=== PATIENT | female | born 1985 | race African-American/Black ===

== ENCOUNTER 2018-07-16 11:06 | Emergency (ER) | payer OTHER ==
[~2018-07-16] VITALS: Ht 162.6 cm; Wt 54.4 kg
[2018-07-16 11:31] LABS: URINE BILIRUBIN NEGATIVE (Negative); URINE BLOOD NEGATIVE (Negative); URINE CLARITY CLEAR; URINE COLOR YELLOW; URINE GLUCOSE-RANDOM* NEGATIVE (Negative); URINE KETONES NEGATIVE (Negative); URINE LEUKOCYTES-REFLEX NEGATIVE (Negative); URINE NITRITE-REFLEX NEGATIVE (Negative); URINE PROTEIN (DIPSTICK) NEGATIVE (Negative); URINE SPECIFIC GRAVITY >= 1.030 (1.005-1.035); URINE UROBILINOGEN 0.2 E.U./dl (0.2-1.0)
[2018-07-16] MEDS ORDERED: FLAGYL500 MG PO (13:11)
[2018-07-16] MEDS ORDERED: DIFLUCAN200 MG PO (13:20)
[2018-07-16] MEDS ORDERED: MOBIC7.5 MG PO (13:20)
[2018-07-16 13:27] VITALS: BP 118/77
[2018-07-19 15:11] LABS: NEISSERIA GONORRHEA-PCR Negative (Negative)
== END 2018-07-16 13:28 | disposition home or self-care (01) ==
LOC: ER 11:06
PROVIDERS: Physician Assistant
DX: T19.2XXA Foreign body in vulva and vagina, initial encounter (principal); R10.9 Unspecified abdominal pain; N76.0 Acute vaginitis; X58.XXXA Exposure to other specified factors, initial encounter; Y93.89 Activity, other specified; Y92.89 Other specified places as the place of occurrence of the external cause; Y99.8 Other external cause status

== ENCOUNTER 2019-10-28 17:17 | Emergency (ER) | payer OTHER ==
[~2019-10-28] VITALS: Ht 162.6 cm; Wt 63.5 kg
[~2019-10-28 17:17] MED LIST: DIFLUCAN200 MG PO; FLAGYL500 MG PO; MOBIC7.5 MG PO
[2019-10-28] MEDS ORDERED: CYCLOBENZAPRINE5 MG PO (18:54)
[2019-10-28] MEDS ORDERED: MOBIC15 MG PO (18:54)
[2019-10-28] MEDS ORDERED: NORCO 5-325 TA1 EAC1 PO (18:54)
[2019-10-28 19:24] VITALS: BP 141/91
== END 2019-10-28 19:22 | disposition home or self-care (01) ==
LOC: ER 17:17
DX: M53.3 Sacrococcygeal disorders, not elsewhere classified (principal); M54.5 Low back pain; Z90.49 Acquired absence of other specified parts of digestive tract; Z79.899 Other long term (current) drug therapy

== ENCOUNTER 2019-11-09 17:15 | Emergency (ER) | payer OTHER ==
[~2019-11-09] VITALS: Ht 165.1 cm; Wt 64.4 kg
[~2019-11-09 17:15] MED LIST changes: +CYCLOBENZAPRINE5 MG PO; +MOBIC15 MG PO; +NORCO 5-325 TA1 EAC1 PO
[2019-11-09 17:34] VITALS: BP 117/78
[2019-11-09] MEDS ORDERED: DEPAKOTE250 MG PO (17:42)
[2019-11-09 19:20] LABS: AMP/METHAMP Negative (Negative); BARBITURATES Negative (Negative); BENZODIAZEPINES POSITIVE (Negative); COCAINE Negative (Negative); METHADONE Negative (Negative); OPIATES Negative (Negative); PCP Negative (Negative)
[2019-11-09 20:56] LABS: ABSOLUTE NEUTROPHILS 7.3 thou/uL (1.4-8.2); BASOPHILS 0.8 % (0.0-2.0); EOSINOPHILS 2.4 % (0.0-3.0); HEMATOCRIT 37.6 % (37.0-47.0); HEMOGLOBIN 12.2 gm/dL (12.0-15.0); LYMPHOCYTES 28.6 % (24.0-44.0); MCH 26.8 pg (26.0-34.0); MCHC 32.4 g/dL (28.0-37.0); MCV 82.7 fL (80.0-100.0); MONOCYTES 7.2 % (1.0-8.0); PLATELET COUNT 208 thou/uL (150-400); RBC 4.55 mil/uL (4.20-5.00); RDW 15.3 % (10.5-14.5); WBC 11.9 thou/uL (4.0-11.0)
[2019-11-09 21:06] LABS: CALCIUM 9.1 mg/dL (8.5-10.1); CREATININE 0.6 mg/dL (0.6-1.0); POTASSIUM 4.1 mmol/L (3.5-5.1)
[2019-11-09 21:09] LABS: SALICYLATE 3.6 mg/dL (2.8-20.0)
[2019-11-09 21:12] LABS: ALBUMIN 3.8 g/dL (3.4-5.0); TOTAL BILIRUBIN 0.2 mg/dL (<0.1-1.0); TOTAL PROTEIN 7.3 g/dL (6.4-8.2)
== END 2019-11-09 23:35 | disposition home or self-care (01) ==
LOC: ER 17:15
PROVIDERS: Nurse Practitioner; Physician Assistant
DX: F41.9 Anxiety disorder, unspecified (principal); R45.851 Suicidal ideations; Z90.49 Acquired absence of other specified parts of digestive tract; Z88.1 Allergy status to other antibiotic agents